=== PATIENT | female | born 1935 | race Caucasian/White ===

== ENCOUNTER 2018-10-31 18:53 | Emergency (ER) | payer MEDICARE, BC ==
[2018-10-31 19:08] VITALS: BP 133/79
--- NOTE | 2018-10-31 19:12 | EDM.PDOC ---
ED HPI GENERAL MEDICAL PROBLEM - General Chief Complaint: General Stated Complaint: FALL Time Seen by Provider: 10/31/18 19:12 Source of Information: Reports: Patient History Limitations: Reports: No Limitations - History of Present Illness INITIAL COMMENTS - FREE TEXT/NARRATIVE: pt was watering her [place] and she lost her balance and she fell on the cement. She huit the rt post portion of her head but she was not knocked out. She is not on blood thinners. She also hit her rt hit hip and rt femur area. She has an abrasion on her rt scalp area. She also has an abrasion on her rt elebow. She is not current with her tetanus. Onset: Today, Sudden Duration: Hour(s): Location: Reports: Head, Pelvis, Upper Extremity, Right, Lower Extremity, Right Associated Symptoms: Reports: Other (pt is very alert and responding. 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 ) Respiratory: Reports: No Symptoms Cardiovascular: Reports: No Symptoms Endocrine: Reports: No Symptoms GI/Abdominal: Reports: No Symptoms : Reports: No Symptoms Musculoskeletal: Reports: Other (pain in the rt hip and in the rt femur area. She has a abrasion on the rt elebow. ) Neurological: Reports: No Symptoms Psychiatric: Reports: No Symptoms ED EXAM, GENERAL - Physical Exam Exam: See Below Free Text/Narrative:: pt arrived with pain in rt hip and femur and rt elebow. She fell while she was watering her plants. Exam Limited By: No Limitations General Appearance: Alert, Moderate Distress, Other (pupils equal and reactive. 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 ) Neck: Normal Inspection Respiratory/Chest: No Respiratory Distress Cardiovascular: Regular Rate, Rhythm GI/Abdominal: Soft, Non-Tender (Female) Exam: Deferred Rectal (Female) Exam: Deferred Back Exam: Normal Inspection Extremities: Other (pt has swelling of her rt wrist and it is very tender, ) Neurological: Alert, Oriented, Normal Cognition Psychiatric: Anxious Course - Vital Signs Last Recorded V/S: Last Vital Signs Temp 35.5 C 10/31/18 19:07 Pulse 79 10/31/18 19:07 Resp 18 10/31/18 19:07 BP 133/79 10/31/18 19:07 Pulse Ox 90 L 10/31/18 19:07 - Orders/Labs/Meds Meds: Medications Discontinued Medications Generic Name Dose Route Start Last Admin Trade Name Freq PRN Reason Stop Dose Admin Bacitracin 1 dose 10/31/18 19:27 10/31/18 20:09 Bacitracin Oint 1 Gm TOP 10/31/18 19:28 1 dose ONETIME ONE Administration Diphtheria/Tetanus/Acell Pertussis 0.5 ml 10/31/18 19:31 10/31/18 20:10 Adacel IM 10/31/18 19:32 0.5 ml .ONCE ONE Administration Dextrose/Sodium Chloride 1,000 mls @ 100 mls/hr 10/31/18 20:30 Dextrose 5%-1/2 Ns IV ASDIRECTED ASHWINI - Re-Assessments/Exams Free Text/Narrative Re-Assessment/Exam: 11/05/18 00:56 pt had a xray of the rt wrist which did not show a fracture. Her cat scan of the facial area was neg for fracture. Departure - Departure Time of Disposition: 20:56 Disposition: Home, Self-Care 01 Condition: Fair Clinical Impression: Contusion of right hip, Contusion of right elbow, Abrasion of scalp - Discharge Information Instructions: Abrasion, Contusion Referrals: PCP,None [Primary Care Provider] - Forms: ED Department Discharge Care Plan Goals: ambulate as tolerated, clean the elebow daily and apply the bacatracin to the area. , cool pack to the hip area, tylenol and mottrin for pain, norco 1/2 tab q6h prn for severe pain.
[2018-10-31] MEDS ORDERED: Bacitracin Oint 1 GM U/D Packet TOP ONE (19:27)
[2018-10-31] MEDS ORDERED: Diphtheria,Pertussis(Acell),Tetanus Vaccine 0.5 ML SDV IM ONE (19:31)
[2018-10-31] MEDS ORDERED: Dextrose 5%-0.45% NaCl 1,000 ML IV SCH (20:30)
--- NOTE | 2018-10-31 20:46 | CRLCR ---
INDICATION: Right hip pain TECHNIQUE: Two AP views of the pelvis and two views right hip COMPARISON: 11/12/2016 FINDINGS: Bones: Alignment is normal. No fractures or bone lesions. Joint spaces: Total right hip arthroplasty. Degenerative changes left hip joint. 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 Bilateral arterial calcification. 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 Dictated by Dustin Rainey MD @ 10/31/2018 8:43:10 PM Dictated by: Dustin Rainey MD @ 10/31/2018 20:43:18 (Electronically Signed)
--- NOTE | 2018-10-31 21:07 | CRLCR ---
INDICATION: Pain and thigh TECHNIQUE: Two views right femur COMPARISON: None FINDINGS: Bones: Unremarkable. Joint spaces: Total right hip arthroplasty. 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 Arterial calcifications noted. 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 Heterotopic bone formation projects lateral to the right hip joint. Dictated by Dustin Rainey MD @ 10/31/2018 9:06:00 PM Dictated by: Dustin Rainey MD @ 10/31/2018 21:06:07 (Electronically Signed)
== END 2018-10-31 21:19 | disposition home or self-care (01) ==
LOC: JP.ED 18:53
DX: S70.01XA Contusion of right hip, initial encounter (principal); S50.01XA Contusion of right elbow, initial encounter; S00.01XA Abrasion of scalp, initial encounter; Z23 Encounter for immunization; Z79.899 Other long term (current) drug therapy; W22.8XXA Striking against or struck by other objects, initial encounter
CPT/HCPCS: 36415; 73502-RT; 73552-RT; 82962; 87040; 90471; 90715; 99283-25

== ENCOUNTER 2021-11-10 08:30 | Emergency (ER) | payer MEDICARE, BC ==
[2021-11-10] MEDS ORDERED: Cyclobenzaprine 10 MG Tab PO ONE (09:12)
[2021-11-10] MEDS ORDERED: Ketorolac 30 MG/ML SDV IM ONE (09:12)
[2021-11-10 10:17] VITALS: BP 157/63; PULSE 67
== END 2021-11-10 11:16 | disposition home or self-care (01) ==
LOC: JP.ED 08:30
DX: M48.54XA Collapsed vertebra, not elsewhere classified, thoracic region, initial encounter for fracture (principal); M54.6 Pain in thoracic spine; G89.29 Other chronic pain; M54.50 Low back pain, unspecified; E78.00 Pure hypercholesterolemia, unspecified; F32.A Depression, unspecified; I10 Essential (primary) hypertension; Z79.899 Other long term (current) drug therapy; Z87.891 Personal history of nicotine dependence
CPT/HCPCS: 71046; 96372; 99283; A9270; J1885; 99282

== ENCOUNTER 2022-09-07 17:15 | Emergency (ER) | payer MEDICARE, BC ==
[2022-09-07 17:28] VITALS: BP 155/32; PULSE 61
[2022-09-07] MEDS ORDERED: Silver Nitrate Applicator Each TOP ONE (17:38)
== END 2022-09-07 18:10 | disposition home or self-care (01) ==
LOC: JP.ED 17:15
DX: L76.21 Postprocedural hemorrhage of skin and subcutaneous tissue following a dermatologic procedure (principal); E78.00 Pure hypercholesterolemia, unspecified; I10 Essential (primary) hypertension; Z79.899 Other long term (current) drug therapy
CPT/HCPCS: 99283

== ENCOUNTER 2022-10-05 14:03 | Inpatient (IN) | payer MEDICARE, BC ==
[2022-10-05 14:45] LABS: BASOPHILS ABSOLUTE AUTO 0.04 K/uL (0.00-0.10); BASOPHILS PERCENT AUTO 0.6 % (0.1-1.3); EOSINOPHILS ABSOLUTE AUTO 0.49 K/uL (0.00-0.40); EOSINOPHILS PERCENT AUTO 7.1 % (0.0-5.4); HEMATOCRIT 31.2 % (34.3-46.0); HEMOGLOBIN 9.9 g/dL (11.2-15.5); IMMATURE GRAN ABSOLUTE AUTO 0.03 K/uL (0.00-0.23); IMMATURE GRAN PERCENT AUTO 0.4 % (0.0-0.7); LYMPHOCYTES ABSOLUTE AUTO 0.65 K/uL (0.8-3.3); LYMPHOCYTES PERCENT AUTO 9.4 % (11.4-47.7); MEAN CORPUSCULAR HEMOGLOBIN 26.6 pg (31.6-35.5); MEAN CORPUSCULAR HGB CONC 31.7 g/dL (31.6-35.5); MEAN CORPUSCULAR VOLUME 83.9 fL (81.4-99.0); MONOCYTES ABSOLUTE AUTO 0.66 K/uL (0.20-0.90); MONOCYTES PERCENT AUTO 9.5 % (3.3-12.6); NEUTROPHILS ABSOLUTE AUTO 5.07 K/uL (1.0-7.6); PLATELET COUNT,PLT 272 K/uL (130-375); RED BLOOD CELL COUNT 3.72 M/uL (3.77-5.24); WHITE BLOOD CELL COUNT,WBC 6.9 K/uL (3.2-11.0)
[2022-10-05] MEDS ORDERED: Furosemide 20 MG/2 ML VIAL IVPUSH ONE (14:52)
[2022-10-05] MEDS ORDERED: Sodium Chloride 0.9% 10 ML Syringe FLUSH PRN ×2 (14:53→16:46)
[2022-10-05 15:13] LABS: CALCIUM 8.4 mg/dL (8.5-10.1); CREATININE 0.9 mg/dL (0.6-1.0); EST CRCL DRUG DOSING (CG) 28.46 mL/min; POTASSIUM,K 4.2 mmol/L (3.6-5.2); TROPONIN I HIGH SENSITIVITY 13.3 pg/mL (<=60.3)
[2022-10-05 15:18] LABS: ANION GAP 13.2 mmol/L (5.0-14.0)
[2022-10-05] MEDS: Lisinopril 2.5 MG Tab PO SCH (15:26)
[2022-10-05] MEDS ORDERED: Budesonide 3 MG Cap.ER PO SCH (16:46)
[2022-10-05] MEDS ORDERED: Acetaminophen 325 MG Tab PO PRN (16:46)
[2022-10-05] MEDS ORDERED: Polyethylene Glycol 3350 Powder 17 GM Packet PO PRN (16:46)
[2022-10-05] MEDS ORDERED: Ondansetron 4 MG/2 ML SDV IV PRN (16:46)
[2022-10-05] MEDS ORDERED: Albuterol 0.083% 2.5 MG/3 ML Neb Soln NEB PRN (16:46)
[2022-10-05] MEDS: Enoxaparin 30 MG/0.3 ML Syringe SUBCUT SCH (21:14)
[2022-10-05] MEDS: Melatonin 3 MG Tab PO SCH (21:14)
[2022-10-05] MEDS: traZODone 50 MG Tab PO SCH (22:41)
[2022-10-06 04:38] LABS: HEMATOCRIT 27.8 % (34.3-46.0); HEMOGLOBIN 8.8 g/dL (11.2-15.5); MEAN CORPUSCULAR HEMOGLOBIN 26.3 pg (31.6-35.5); MEAN CORPUSCULAR HGB CONC 31.7 g/dL (31.6-35.5); RED BLOOD CELL COUNT 3.35 M/uL (3.77-5.24); WHITE BLOOD CELL COUNT,WBC 5.9 K/uL (3.2-11.0)
[2022-10-06 04:55] LABS: CREATININE 0.9 mg/dL (0.6-1.0); EST CRCL DRUG DOSING (CG) 28.68 mL/min; MAGNESIUM 1.9 mg/dL (1.8-2.4); POTASSIUM,K 4.3 mmol/L (3.6-5.2)
[2022-10-06 05:18] LABS: ANION GAP 9.3 mmol/L (5.0-14.0)
[2022-10-06] MEDS: Bumetanide 2.5 MG/10 ML MDV IVPUSH SCH ×2 (07:41→19:19)
[2022-10-06] MEDS ORDERED: atorvaSTATin 10 MG Tab PO SCH ×2 (09:00)
[2022-10-06] MEDS: Lidocaine 5% 700 MG Patch TRDERM SCH (09:58)
[2022-10-06] MEDS: Lisinopril 2.5 MG Tab PO SCH (10:00)
[2022-10-06] MEDS: Tamsulosin 0.4 MG Cap.ER PO SCH (10:00)
[2022-10-06] MEDS: Amiodarone 200 MG Tab PO SCH (10:00)
[2022-10-06] MEDS: Magnesium Oxide 400 MG Tab PO SCH (10:01)
[2022-10-06] MEDS ORDERED: Bisacodyl 10 MG Supp RECTAL PRN (19:08)
[2022-10-06] MEDS: traZODone 50 MG Tab PO SCH (20:22)
[2022-10-06] MEDS: Enoxaparin 30 MG/0.3 ML Syringe SUBCUT SCH (20:22)
[2022-10-06] MEDS: Melatonin 3 MG Tab PO SCH (20:22)
[2022-10-07 04:56] LABS: BASOPHILS ABSOLUTE AUTO 0.04 K/uL (0.00-0.10); BASOPHILS PERCENT AUTO 0.5 % (0.1-1.3); EOSINOPHILS ABSOLUTE AUTO 0.38 K/uL (0.00-0.40); EOSINOPHILS PERCENT AUTO 4.8 % (0.0-5.4); HEMATOCRIT 28.7 % (34.3-46.0); IMMATURE GRAN ABSOLUTE AUTO 0.03 K/uL (0.00-0.23); IMMATURE GRAN PERCENT AUTO 0.4 % (0.0-0.7); LYMPHOCYTES PERCENT AUTO 15.2 % (11.4-47.7); MEAN CORPUSCULAR HEMOGLOBIN 25.9 pg (31.6-35.5); MEAN CORPUSCULAR HGB CONC 31.4 g/dL (31.6-35.5); MEAN CORPUSCULAR VOLUME 82.5 fL (81.4-99.0); MONOCYTES ABSOLUTE AUTO 0.99 K/uL (0.20-0.90); MONOCYTES PERCENT AUTO 12.5 % (3.3-12.6); NEUTROPHILS ABSOLUTE AUTO 5.26 K/uL (1.0-7.6); NEUTROPHILS PERCENT AUTO 66.6 % (40.0-78.1); PLATELET COUNT,PLT 288 K/uL (130-375); RED BLOOD CELL COUNT 3.48 M/uL (3.77-5.24); WHITE BLOOD CELL COUNT,WBC 7.9 K/uL (3.2-11.0)
[2022-10-07 05:06] LABS: CALCIUM 8.1 mg/dL (8.5-10.1); CREATININE 1.2 mg/dL (0.6-1.0); EST CRCL DRUG DOSING (CG) 21.16 mL/min; POTASSIUM,K 4.3 mmol/L (3.6-5.2)
[2022-10-07 05:27] LABS: ANION GAP 9.3 mmol/L (5.0-14.0)
[2022-10-07] MEDS: Bumetanide 2.5 MG/10 ML MDV IVPUSH SCH (07:31)
[2022-10-07] MEDS: Tamsulosin 0.4 MG Cap.ER PO SCH (09:44)
[2022-10-07] MEDS: Lisinopril 2.5 MG Tab PO SCH (09:44)
[2022-10-07] MEDS: Lidocaine 5% 700 MG Patch TRDERM SCH (09:44)
[2022-10-07] MEDS: Amiodarone 200 MG Tab PO SCH (09:44)
[2022-10-07] MEDS: Magnesium Oxide 400 MG Tab PO SCH (09:44)
[2022-10-07 10:18] VITALS: BP 115/40; PULSE 74
== END 2022-10-07 13:00 | disposition home or self-care (01) | DRG 291 ==
LOC: JP.ED 14:03 → JP.MS 16:14
PROVIDERS: ADMIT Hospitalist; ATTEND Hospitalist
DX: I11.0 Hypertensive heart disease with heart failure (principal); I50.23 Acute on chronic systolic (congestive) heart failure; E87.1 Hypo-osmolality and hyponatremia; I25.10 Atherosclerotic heart disease of native coronary artery without angina pectoris; I48.91 Unspecified atrial fibrillation; D64.9 Anemia, unspecified; I73.9 Peripheral vascular disease, unspecified; E78.00 Pure hypercholesterolemia, unspecified; F32.A Depression, unspecified; Z96.649 Presence of unspecified artificial hip joint; Z20.822 Contact with and (suspected) exposure to COVID-19; M19.90 Unspecified osteoarthritis, unspecified site; G89.29 Other chronic pain; M54.9 Dorsalgia, unspecified; Z98.890 Other specified postprocedural states; Z89.611 Acquired absence of right leg above knee
CPT/HCPCS: 36415; 71045; 71045-26; 80048; 83735; 83880; 84145; 84443; 84484; 85025; 85027; 93005; 94640; 96374; 99285-25; A9270-GY; J1650; J1940; J3490; U0002

== ENCOUNTER 2023-11-05 09:44 | Emergency (ER) | payer MEDICARE, BC ==
[2023-11-05 10:38] VITALS: BP 152/42; PULSE 59
== END 2023-11-05 12:37 | disposition home or self-care (01) ==
LOC: JP.ED 09:44
DX: M79.81 Nontraumatic hematoma of soft tissue (principal); I10 Essential (primary) hypertension; Z79.899 Other long term (current) drug therapy; E78.00 Pure hypercholesterolemia, unspecified; Z87.891 Personal history of nicotine dependence
CPT/HCPCS: 99282; 99283

== ENCOUNTER 2024-01-26 18:00 | Emergency (ER) | payer MEDICARE, BC ==
[2024-01-26 18:39] LABS: BASOPHILS PERCENT AUTO 0.3 % (0.1-1.3); EOSINOPHILS ABSOLUTE AUTO 0.08 K/uL (0.00-0.40); HEMATOCRIT 33.3 % (34.3-46.0); HEMOGLOBIN 11.1 g/dL (11.2-15.5); IMMATURE GRAN PERCENT AUTO 0.3 % (0.0-0.7); LYMPHOCYTES ABSOLUTE AUTO 1.28 K/uL (0.8-3.3); LYMPHOCYTES PERCENT AUTO 16.2 % (11.4-47.7); MEAN CORPUSCULAR HEMOGLOBIN 32.6 pg (31.6-35.5); MEAN CORPUSCULAR HGB CONC 33.3 g/dL (31.6-35.5); MEAN CORPUSCULAR VOLUME 97.9 fL (81.4-99.0); MONOCYTES ABSOLUTE AUTO 0.84 K/uL (0.20-0.90); MONOCYTES PERCENT AUTO 10.6 % (3.3-12.6); NEUTROPHILS ABSOLUTE AUTO 5.68 K/uL (1.0-7.6); NEUTROPHILS PERCENT AUTO 71.6 % (40.0-78.1); PLATELET COUNT,PLT 184 K/uL (130-375); WHITE BLOOD CELL COUNT,WBC 7.9 K/uL (3.2-11.0)
[2024-01-26 18:40] LABS: BASOPHILS ABSOLUTE AUTO 0.02 K/uL (0.00-0.10); IMMATURE GRAN ABSOLUTE AUTO 0.02 K/uL (0.00-0.23)
[2024-01-26 19:03] LABS: CALCIUM 9.1 mg/dL (8.5-10.1); CREATININE 0.9 mg/dL (0.6-1.0); EST CRCL DRUG DOSING (CG) 27.31 mL/min; POTASSIUM,K 4.4 mmol/L (3.6-5.2); TROPONIN I HIGH SENSITIVITY 9.6 pg/mL (<=60.3)
[2024-01-26 19:05] LABS: ANION GAP 9.4 mmol/L (5.0-14.0)
[2024-01-26 19:53] VITALS: BP 177/56; PULSE 59
== END 2024-01-26 20:21 | disposition home or self-care (01) ==
LOC: JP.ED 18:00
DX: R07.89 Other chest pain (principal); I10 Essential (primary) hypertension; E78.00 Pure hypercholesterolemia, unspecified; Z79.82 Long term (current) use of aspirin; Z79.899 Other long term (current) drug therapy; Z79.890 Hormone replacement therapy; Z79.1 Long term (current) use of non-steroidal anti-inflammatories (NSAID)
CPT/HCPCS: 36415; 71045; 71045-26; 80048; 84484; 85025; 93005; 93010; 99283; 99285

== ENCOUNTER 2024-05-03 12:28 | Emergency (ER) | payer MEDICARE, BC ==
[2024-05-03 14:54] VITALS: PULSE 58
[2024-05-03 15:45] VITALS: BP 169/49
[2024-05-03] MEDS: Bacitracin Oint 1 GM U/D Packet TOP ONE (16:36)
[2024-05-03] MEDS: Lidocaine 1% 5 ML VIAL INJECT ONE (16:37)
== END 2024-05-03 16:20 ==
LOC: JP.ED 12:28
DX: S81.012A Laceration without foreign body, left knee, initial encounter (principal); S51.812A Laceration without foreign body of left forearm, initial encounter; I10 Essential (primary) hypertension; E78.00 Pure hypercholesterolemia, unspecified; M19.90 Unspecified osteoarthritis, unspecified site; Z96.649 Presence of unspecified artificial hip joint; Z79.82 Long term (current) use of aspirin; Z79.899 Other long term (current) drug therapy; W05.0XXA Fall from non-moving wheelchair, initial encounter
CPT/HCPCS: 12006; 73110-LT; 73552-RT; 73562-LT; 99283

== ENCOUNTER 2024-06-13 12:29 | Emergency (ER) | payer MEDICARE, BC ==
[2024-06-13 12:56] LABS: BASOPHILS ABSOLUTE AUTO 0.03 K/uL (0.00-0.10); BASOPHILS PERCENT AUTO 0.4 % (0.1-1.3); EOSINOPHILS ABSOLUTE AUTO 0.22 K/uL (0.00-0.40); EOSINOPHILS PERCENT AUTO 2.7 % (0.0-5.4); HEMOGLOBIN 10.5 g/dL (11.2-15.5); IMMATURE GRAN ABSOLUTE AUTO 0.05 K/uL (0.00-0.23); IMMATURE GRAN PERCENT AUTO 0.6 % (0.0-0.7); LYMPHOCYTES ABSOLUTE AUTO 1.03 K/uL (0.8-3.3); LYMPHOCYTES PERCENT AUTO 12.5 % (11.4-47.7); MEAN CORPUSCULAR HEMOGLOBIN 31.9 pg (31.6-35.5); MEAN CORPUSCULAR HGB CONC 32.8 g/dL (31.6-35.5); MEAN CORPUSCULAR VOLUME 97.3 fL (81.4-99.0); MONOCYTES ABSOLUTE AUTO 0.74 K/uL (0.20-0.90); NEUTROPHILS ABSOLUTE AUTO 6.17 K/uL (1.0-7.6); NEUTROPHILS PERCENT AUTO 74.8 % (40.0-78.1); PLATELET COUNT,PLT 195 K/uL (130-375); RED BLOOD CELL COUNT 3.29 M/uL (3.77-5.24); WHITE BLOOD CELL COUNT,WBC 8.2 K/uL (3.2-11.0)
[2024-06-13] MEDS: Glucagon,Human Recombinant 1 MG Vial IV ONE (12:57)
[2024-06-13 13:15] LABS: A/G RATIO 0.7 (1.2-2.2); ALANINE AMINOTRANSFERASE,ALT 46 U/L (12-78); ALBUMIN 2.9 g/dL (3.4-5.0); ALKALINE PHOSPHATASE 78 U/L (46-116); ANION GAP 12.7 mmol/L (5.0-14.0); ASPARTATE AMNIOTRANSFERASE,AST 49 U/L (15-37); BILIRUBIN TOTAL 0.3 mg/dL (0.2-1.0); BLOOD UREA NITROGEN,BUN 23 mg/dL (7-18); CALCIUM 8.2 mg/dL (8.5-10.1); CARBON DIOXIDE,CO2 28 mmol/L (21-32); CHLORIDE,CL 96 mmol/L (100-108); CREATININE 0.9 mg/dL (0.6-1.0); ESTIMATED GFR 61 mL/min (>60); GLUCOSE RANDOM 116 mg/dL (74-106); POTASSIUM,K 4.7 mmol/L (3.6-5.2); PROTEIN TOTAL,TP 7.1 g/dL (6.4-8.2); SODIUM,NA 132 mmol/L (140-148)
[2024-06-13] MEDS: hydrALAZINE 20 MG/ML SDV IVPUSH ONE (13:48)
[2024-06-13] MEDS: Levofloxacin 250 MG Tab PO ONE (14:32)
[2024-06-13 14:53] LABS: TROPONIN I HIGH SENSITIVITY 46.1 pg/mL (<=60.3)
[2024-06-13 15:33] VITALS: BP 185/58; PULSE 68
== END 2024-06-13 15:48 | disposition home or self-care (01) ==
LOC: JP.ED 12:29
DX: J69.0 Pneumonitis due to inhalation of food and vomit (principal); I11.0 Hypertensive heart disease with heart failure; I50.9 Heart failure, unspecified; E78.00 Pure hypercholesterolemia, unspecified; Z79.82 Long term (current) use of aspirin; Z79.890 Hormone replacement therapy; Z79.899 Other long term (current) drug therapy
CPT/HCPCS: 36415; 71046; 80053; 83880; 84484; 85025; 93005; 96374; 96375; 99284; A9270; J0360; J1610; 93010